=== PATIENT | female | born 1985 | race Caucasian/White ===

== ENCOUNTER 2019-07-29 23:15 | Inpatient (IN) | payer OTHER ==
[~2019-07-29] VITALS: Ht 152.4 cm; Wt 77.1 kg
[2019-07-30] MEDS ORDERED: OXYTOCIN 20 UNITS/LR PREMIX 1,000 ML IV SCH
[2019-07-30] MEDS ORDERED: LACTATED RINGERS 1,000 ML IV SCH
[2019-07-30] MEDS ORDERED: PREN-380 PO (00:12)
[2019-07-30] MEDS ORDERED: OXYTOCIN 20 UNITS/LR PREMIX 1,000 ML IV ONE (00:15)
[2019-07-30 00:34] LABS: BASOPHILS % (AUTO) 0.6 % (0.0-2.0); EOSINOPHILS % (AUTO) 0.7 % (0.0-4.0); HEMATOCRIT 36.7 % (36-48); HEMOGLOBIN 11.9 g/dL (12.0-16.0); LYMPHOCYTES # (AUTO) 1.4 K/uL (2.5-16.5); LYMPHOCYTES % (AUTO) 19.7 % (20.5-51.1); MEAN CORPUSCULAR HEMOGLOBIN 25 pg (27-31); MEAN CORPUSCULAR HGB CONC 32 g/dL (33-37); MEAN CORPUSCULAR VOLUME 76.4 fL (80-94); MONOCYTES # (AUTO) 0.4 K/uL (0.8-1.0); MONOCYTES % (AUTO) 5.2 % (1.7-9.3); NEUTROPHILS # (AUTO) 5.3 K/uL (1.8-7.7); NEUTROPHILS % (AUTO) 73.8 % (42.2-75.2); PLATELET COUNT (AUTO) 281 K/uL (140-450); RED BLOOD CELL COUNT(AUTO) 4.81 MIL/uL (4.20-5.40); RED CELL DISTRIBUTION WIDTH 18.5 % (11.6-13.7); WHITE BLOOD COUNT (AUTO) 7.2 K/uL (4.8-10.8)
[2019-07-30 00:51] LABS: APPEARANCE,URINE CLOUDY (CLEAR); BILIRUBIN,URINE 2+ (NEGATIVE); BLOOD, URINE 3+ (NEGATIVE); COLOR,URINE DARK YELLOW (YELLOW); LEUKOCYTE ESTERASE ,URINE TRACE (NEGATIVE); NITRITE, URINE NEGATIVE (NEGATIVE); UGLUCOSE NEGATIVE (NEGATIVE)
[2019-07-30] MEDS ORDERED: AMPICILLIN 2,000 MG in NACL 0.9% 100 ML IV ONE (01:00)
[2019-07-30] MEDS ORDERED: AMPICILLIN 2,000 MG VIAL ONE (01:10)
[2019-07-30] MEDS ORDERED: fentaNYL 0.05 MG/ML VIAL IVP PRN (01:10)
[2019-07-30] MEDS ORDERED: fentaNYL 0.05 MG/ML VIAL ONE (01:13)
[2019-07-30 01:27] LABS: RBC,URINE TOO NUMEROUS TO COUN /HPF (0-5); WBC,URINE TOO MANY TO COUNT /HPF (0-5)
[2019-07-30] MEDS ORDERED: GENTAMICIN 80 MG in DEXTROSE 5% 100 ML IV ONE (02:00)
[2019-07-30] MEDS ORDERED: BUPIVACAINE 0.125%/NS PREMIX 250 ML ONE (02:02)
[2019-07-30] MEDS ORDERED: GENTAMICIN 80 MG/2 ML VIAL ONE (02:53)
[2019-07-30] MEDS ORDERED: AMPICILLIN 1,000 MG in NACL 0.9% 50 ML IV SCH (05:00)
[2019-07-30] MEDS ORDERED: METHYLERGONOVINE 0.2 MG/ML AMP ONE (05:54)
[2019-07-30] MEDS ORDERED: SIMETHICONE 80 MG TAB.CHEW PO PRN (06:35)
[2019-07-30] MEDS ORDERED: MEASLES, MUMPS, AND RUBELLA 1 VIAL SQVAC PRN (06:35)
[2019-07-30] MEDS ORDERED: BISACODYL 5 MG TABEC PO PRN (06:35)
[2019-07-30] MEDS ORDERED: METHYLERGONOVINE 0.2 MG/ML AMP IM PRN (06:35)
[2019-07-30] MEDS ORDERED: BENZOCAINE/MENTHOL 20%-0.5% 60 GM CAN TP PRN (06:35)
[2019-07-30] MEDS ORDERED: DOCUSATE SODIUM 100 MG GELCAP PO PRN (06:35)
[2019-07-30] MEDS ORDERED: OXYTOCIN 10 UNITS/ML VIAL IM PRN (06:35)
[2019-07-30] MEDS ORDERED: IBUPROFEN 600 MG TAB PO PRN ×2 (06:35)
[2019-07-30] MEDS ORDERED: METHYLERGONOVINE 0.2 MG TAB PO PRN (06:35)
--- NOTE | 2019-07-30 08:45 | NUR ---
PATIENT HAS BEEN SCREENED AND CATEGORIZED LOW NUTRITION RISK. PATIENT WILL BE SEEN WITHIN 7 DAYS OF ADMISSION. 08/05/[address]
[2019-07-30] MEDS: IBUPROFEN 800 MG TAB PO PRN (13:27)
[2019-07-30 16:31] LABS: HEMATOCRIT 27.8 % (36-48); HEMOGLOBIN 8.8 g/dL (12.0-16.0)
[2019-07-31 18:56] LABS: HEMATOCRIT 24.5 % (36-48); HEMOGLOBIN 7.7 g/dL (12.0-16.0)
[2019-08-01] MEDS ORDERED: BUPIVACAINE-MPF 0.25% 30 ML VIAL INJ ONE (09:52)
[2019-08-01] MEDS ORDERED: LACTATED RINGERS 1,000 ML IV SCH ×2 (10:27)
[2019-08-01] MEDS ORDERED: HYDROmorphone 1 MG/ML AMP IVP PRN (10:30)
[2019-08-01] MEDS ORDERED: MEPERIDINE 25 MG/ML SYR IVP PRN (10:30)
[2019-08-01] MEDS ORDERED: ONDANSETRON 4 MG/2 ML VIAL IVP PRN (10:30)
[2019-08-01] MEDS ORDERED: diphenhydrAMINE 50 MG/ML VIAL IVP PRN (10:30)
[2019-08-01] MEDS: IBUPROFEN 800 MG TAB PO PRN (19:41)
== END 2019-08-01 21:45 | disposition home or self-care (01) | DRG 541 ==
LOC: MLD 23:15 → MFCC 07-30 10:00
PROVIDERS: ADMIT Obstetrics & Gynecology; ATTEND Obstetrics & Gynecology
PROC: 10D07Z6 Extraction of Products of Conception, Vacuum, Via Natural or Artificial Opening (ICD-10-PCS; principal; 2019-07-30)
PROC: 0UQC0ZZ Repair Cervix, Open Approach (ICD-10-PCS; 2019-07-30)
PROC: 0KQM0ZZ Repair Perineum Muscle, Open Approach (ICD-10-PCS; 2019-07-30)
PROC: 00HU33Z Insertion of Infusion Device into Spinal Canal, Percutaneous Approach (ICD-10-PCS; 2019-07-30)
PROC: 3E0R3BZ Introduction of Anesthetic Agent into Spinal Canal, Percutaneous Approach (ICD-10-PCS; 2019-07-30)
PROC: 3E0234Z Introduction of Serum, Toxoid and Vaccine into Muscle, Percutaneous Approach (ICD-10-PCS; 2019-07-30)
PROC: 0UB70ZZ Excision of Bilateral Fallopian Tubes, Open Approach (ICD-10-PCS; 2019-08-01)
DX: O76 Abnormality in fetal heart rate and rhythm complicating labor and delivery (principal); O41.1230 Chorioamnionitis, third trimester, not applicable or unspecified; D62 Acute posthemorrhagic anemia; O71.3 Obstetric laceration of cervix; O70.1 Second degree perineal laceration during delivery; Z30.2 Encounter for sterilization; Z23 Encounter for immunization
CPT/HCPCS: 36415; 51702; 81001; 85018; 85025; 86592; 86886; 86900; 86901; 87086; 88302; 90715; J0290; J0690; J1580; J2210; J2590; J3010; J3490; J7060; J7120